=== PATIENT | female | born 1985 | race Caucasian/White ===

== ENCOUNTER 2023-03-19 01:36 | Inpatient (IN) | payer SELFPAY ==
[2023-03-19 02:19] VITALS: BMI 33.0
[2023-03-19] MEDS ORDERED: hydrALAZINE 20 MG/ML VIAL SLOW IVP PRN ×2 (03:02→05:10)
[2023-03-19 03:32] LABS: #Eosinphils 0.2 10x3/uL (0.0-0.5); #Monocytes 0.9 10x3/uL (0.0-1.1); #Neutrophils 7.2 10x3/uL (1.5-8.4); %Basophils 0.3 % (0.0-2.0); %Eosinophils 2.2 % (0.0-6.0); %Lymphocytes 19.2 % (18.0-47.0); %Monocytes 8.3 % (0.0-10.0); %Neutrophils 69.4 % (40.0-75.0); Hematocrit 29.3 % (34.9-44.5); Hemoglobin 9.8 g/dL (12.0-15.5); Mean Corpuscular HGB CONC 33.4 g/dL (32.0-36.0); Mean Corpuscular Hemoglobin 30.9 pg (27.0-33.0); Mean Corpuscular Volume 92.4 fl (81.6-98.3); Mean Platelet Volume 9.6 fl (7.4-10.4); Platelet Count 267 10x3/uL (150-450); RBC Distribution Width 13.1 % (11.5-14.5); Red Blood Cell (RBC) Count 3.17 10x6/uL (3.90-5.03); White Blood Cell (WBC) Count 10.4 10x3/uL (3.5-10.5)
[2023-03-19 03:49] LABS: ALT (SGPT) 22 U/L (8-55); AST (SGOT) 20 U/L (5-34); Albumin 3.3 g/dL (3.5-5.0); Alkaline Phosphatase 76 U/L (40-110); Anion Gap 15 mmol/L (10-20); BUN (Urea Nitrogen) 8 mg/dL (7.0-18.7); Bilirubin, Total 0.3 mg/dL (0.2-1.2); Calc. Creatinine Clearance 171 mL/min (70-130); Calcium 9.2 mg/dL (7.8-10.44); Carbon Dioxide 21 mmol/L (22-29); Chloride 106 mmol/L (98-107); Estimated GFR 120; Globulin 2.8 g/dL (2.4-3.5); Glucose 107 mg/dL (70-105); Potassium 3.8 mmol/L (3.5-5.1); Protein, Total 6.1 g/dL (6.0-8.3); Sodium 138 mmol/L (136-145)
[2023-03-19 04:37] LABS: Fetal Membranes Rupture RUPTURE DETECTED (No Rupture)
[2023-03-19] MEDS ORDERED: Lactated Ringer's 1,000 ML IV SCH (05:00)
[2023-03-19] MEDS ORDERED: Promethazine HCl 25 MG/ML VIAL IM PRN (05:10)
[2023-03-19] MEDS ORDERED: Ondansetron PF 4 MG/2 ML Vial IVP PRN (05:10)
[2023-03-19] MEDS ORDERED: Magnesium Sulfate 20 gm/500 ml 20 GM/500 ML BAG ONE (05:30)
[2023-03-19] MEDS ORDERED: Betamet Acet/Betamet Na Ph 30 MG/5 ML VIAL ONE (05:30)
[2023-03-19] MEDS: Betamet Acet/Betamet Na Ph 30 MG/5 ML VIAL IM SCH (05:44)
[2023-03-19] MEDS ORDERED: Magnesium Sulfate 20 gm/500 ml 20 GM/500 ML BAG IVPB SCH (06:00)
[2023-03-19] MEDS ORDERED: Azithromycin 250 MG TAB PO SCH (06:00)
[2023-03-19] MEDS: Ampicillin 2 GM in Sodium Chloride 0.9% 100 ML IVPB SCH ×3 (06:18→18:46)
[2023-03-19 07:35] LABS: #Eosinphils 0.2 10x3/uL (0.0-0.5); #Monocytes 0.7 10x3/uL (0.0-1.1); #Neutrophils 7.4 10x3/uL (1.5-8.4); %Basophils 0.2 % (0.0-2.0); %Eosinophils 2.1 % (0.0-6.0); %Lymphocytes 16.2 % (18.0-47.0); %Monocytes 6.5 % (0.0-10.0); %Neutrophils 74.6 % (40.0-75.0); Hematocrit 28.4 % (34.9-44.5); Hemoglobin 9.5 g/dL (12.0-15.5); Mean Corpuscular HGB CONC 33.5 g/dL (32.0-36.0); Mean Corpuscular Hemoglobin 31.4 pg (27.0-33.0); Mean Corpuscular Volume 93.7 fl (81.6-98.3); Mean Platelet Volume 9.9 fl (7.4-10.4); Platelet Count 258 10x3/uL (150-450); RBC Distribution Width 13.2 % (11.5-14.5); Red Blood Cell (RBC) Count 3.03 10x6/uL (3.90-5.03)
[2023-03-19 07:57] LABS: HBSAg Index 0.15 S/CO (0-0.99); Hep B Surf Ag - L&D Non-Reactive S/CO (NonReactive)
[2023-03-19 08:05] LABS: Syphilis Antibody Nonreactive (Nonreactive); Syphilis Antibody Index 0.07 S/CO (<1.00 Non-Reactive)
[2023-03-19] MEDS ORDERED: Ondansetron PF 4 MG/2 ML Vial ONE (09:26)
[2023-03-19] MEDS: AMOXicillin 250 MG CAP PO SCH ×3 (09:29→21:12)
[2023-03-19] MEDS: valACYclovir 500 MG TAB PO SCH (17:32)
[2023-03-20] MEDS: Ampicillin 2 GM in Sodium Chloride 0.9% 100 ML IVPB SCH ×2 (06:06)
[2023-03-20] MEDS: Betamet Acet/Betamet Na Ph 30 MG/5 ML VIAL IM SCH (06:07)
[2023-03-20] MEDS: valACYclovir 500 MG TAB PO SCH (08:56)
[2023-03-20] MEDS: AMOXicillin 250 MG CAP PO SCH (08:57)
[2023-03-20] MEDS ORDERED: Azithromycin 250 MG TAB PO SCH (10:00)
[2023-03-20 13:20] LABS: Group B Streptococcus by PCR Not Detected (NotDetected)
== END 2023-03-20 10:32 | disposition short-term general hospital (02) | DRG 832 ==
LOC: CSHLD/OP 01:36 → CSHLD 05:11
PROVIDERS: ADMIT Obstetrics & Gynecology; ATTEND Obstetrics & Gynecology
DX: O42.913 Preterm premature rupture of membranes, unspecified as to length of time between rupture and onset of labor, third trimester (principal); O98.513 Other viral diseases complicating pregnancy, third trimester; Z3A.31 31 weeks gestation of pregnancy; Z98.890 Other specified postprocedural states; Z90.49 Acquired absence of other specified parts of digestive tract; Z88.2 Allergy status to sulfonamides; B00.9 Herpesviral infection, unspecified
CPT/HCPCS: 36415; 51702; 76815; 80053; 84112; 85025; 86780; 86850; 86900; 86901; 87340; 87480; 87510; 87653; 87660; 99285; J0290; J0702; J2405; J3475; J3490